=== PATIENT | female | born 1950 | race Caucasian/White ===

== ENCOUNTER 2017-08-08 12:50 | Emergency (ER) | payer MEDICARE ==
[~2017-08-08] VITALS: Ht 177.8 cm; Wt 130.0 kg
[2017-08-08 12:52] VITALS: BP 152/88; PULSE 88; RESP 17; TEMP 97.8; O2SAT 96
--- NOTE | 2017-08-08 12:55 | PD ---
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 NO LOC ,N/V/ NUMBNESS OR TINGLING. PAIN 8/10 VS NOTED WAITING FOR BED PLACEMENT MDM Medical Record Reviewed: No Supervised Visit with SANGEETA: Yes Demetrius Contreras Aug 08, 2017 12:54
--- NOTE | 2017-08-08 13:37 | PD ---
HPI Chief Complaint: Fall Time Seen by Provider: 13:26 Travel History International Travel<30 days: No Contact w/Intl Traveler<30days: No Traveled to known affect area: No History of Present Illness HPI 67-year-old female presents emergency Department with complaint of left eye pain , right shoulder pain and bilateral knee pain after tripping over a floor mat and falling today. Denies loss of consciousness. Denies neck pain or back pain. Patient has swelling and bruising around her left eye. She denies change in vision. Denies focal deficits or weakness. Denies change in mentation, confusion, disorientation, lightheadedness, dizziness, headache, slurred speech. Denies anticoagulants. Denies paresthesias, loss of sensation , to all extremities. Reports decreased range of motion of the right shoulder. Denies chest pain or shortness breath, abdominal pain, nausea, vomiting. Is ambulatory with normal gait. Says her knees really don't hurt much. Has not taken any medications or tried any treatments to alleviate her symptoms. Right shoulder pain is aggravated with movement. Decreased while at rest. Up-to- date on tetanus vaccination. Has no other medical complaints. Allergies to penicillins and sulfas. No other modifying factors or associated signs and symptoms. PFSH Social History Tobacco Use: No Allergies-Medications (Allergen,Severity, Reaction): Coded Allergies: Penicillins (Verified Allergy, Severe, Rash, 08/08/17) Sulfa (Sulfonamide Antibiotics) (Verified Allergy, Severe, Rash, 08/08/17) Review of Systems Except as stated in HPI: all other systems reviewed are Neg Physical Exam Narrative GENERAL: Well-nourished, well-developed female patient, in no acute distress SKIN: Warm and dry. Left lateral eyebrow with abrasion. HEAD: Atraumatic. Normocephalic. eft lateral eyebrow with abrasion. No other facial or scalp abrasions or lacerations noted. EYES: Pupils equal and round at 3 mm with brisk reaction. No scleral icterus. No injection or drainage. Left raccoon eye. Ecchymosis and swelling noted around left eye. With left orbital tenderness on palpation. ENT: Mucosa pink and moist. No erythema or exudates. No uvular edema. No uvular , palatal, or tonsillar deviation. Airway patent. Nares without nasal blood. No rhinorrhea. EARS: Bilateral pinnae and external canals appear within normal limits. Bilateral tympanic membranes without erythema, dullness, hemotympanum or perforation. No otorrhea. No joy signs. NECK: Moving freely. Trachea midline. No lymphadenopathy. Active rotation of the neck greater than 45 left and right. No midline point tenderness on palpation of the cervical spine. No obvious deformities. CHEST: No retractions or use of accessory muscles. CARDIOVASCULAR: Regular rate and rhythm. No murmur appreciated. RESPIRATORY: No accessory muscle use. Clear to auscultation. Breath sounds equal bilaterally. GASTROINTESTINAL: Abdomen soft, non-tender, nondistended. Hepatic and splenic margins not palpable. Bowel sounds are active 4 quadrants. MUSCULOSKELETAL: Right shoulder without erythema, edema, ecchymosis; no obvious deformity; with approximately 90 abduction; shoulders equal; joint stable. Right upper extremities supple and non-tense with 2+ radial pulses and sensory intact without erythema or edema. 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 Bilateral knees without erythema, edema, ecchymosis; with full range of motion and greater than 90 flexion; patient ambulatory with normal gait; no tenderness on palpation. No obvious deformities. No clubbing. No cyanosis. No edema. BACK: No midline Point tenderness on palpation of the lumbar or thoracic spine. No obvious deformities. Patient sitting up in bed at 90. Ambulatory with normal gait. NEUROLOGICAL: Awake and alert. Oriented 3. No obvious cranial nerve deficits. Motor grossly within normal limits. Normal speech. Unable to assess midline drift secondary to right shoulder injury. Moves all extremities. 5/5 strength to all extremities. Sensory intact. PSYCHIATRIC: Appropriate mood and affect; insight and judgment normal. Data Data Last Documented VS Vital Signs Date Time Temp Pulse Resp B/P (MAP) Pulse Ox O2 Delivery O2 Flow Rate FiO2 08/08/17 12:52 97.8 88 17 152/88 (109) 96 Room Air Orders Orders Ct Brain W/O Iv Contrast(Rout) (08/08/17 ) Ct Facial Bones W/O Iv Cont (08/08/17 ) Shoulder, Complete (>2vws) (08/08/17 13:20) [facility] Medical Decision Making Medical Screen Exam Complete: Yes Emergency Medical Condition: Yes Medical Record Reviewed: Yes Differential Diagnosis Fall, facial contusion, orbital fracture, shoulder contusion, shoulder fracture , knee contusion Narrative Course 67-year-old female with right shoulder injury and facial contusion after mechanical fall today. Denies loss of consciousness. Denies neck pain or back pain. Denies anticoagulants. [place] C-Spine Rule suggests the C-Spine can be cleared clinically of fracture, and imaging is not required. There is no midline point tenderness on palpation of the cervical spine. The patient is able to actively rotate the neck 45 left and right. The patient is sitting up in bed at 90. The patient is ambulatory. Patient up-to-date on tetanus vaccination. I do not suspect fracture dislocation of either knees and feel that imaging is not necessary at this time. Right shoulder x-ray ordered. CT head and facial bones ordered. 1345: Right shoulder x-ray concludes: No definite fracture is seen for technique. 1454: CT head and facial bones concludes: Last 24 hours Impressions Shoulder X-Ray 08/08/17 1320 Signed Impressions: Service Date/Time: , August 08, 2017 13:33 - CONCLUSION: No definite fracture is seen for technique. Brando Griffin MD Maxillofacial CT 08/08/17 0000 Signed Impressions: Service Date/Time: , August 08, 2017 14:18 - CONCLUSION: No definite fracture is seen for technique. Brando Griffin MD Head CT 08/08/17 0000 Signed Impressions: Service Date/Time: August 14:18 - CONCLUSION: Unremarkable study. Brando Griffin MD I offered the patient pain medication while she was here and she declined. I offered the patient pain medication for home and she declined. Instructed patient to follow up with primary care provider. Patient verbalizes understanding and agreement with treatment plan. Patient is medically cleared and stable for discharge. Discussed reasons to return to the emergency department. Patient agrees with treatment plan. The patients vital signs are stable and the patient is stable for outpatient follow-up and treatment. Patient discharged home, stable and in no acute distress. Diagnosis Primary Impression: Fall Qualified Codes: W19.XXXA - Unspecified fall, initial encounter Additional Impressions: Facial contusion Qualified Codes: S00.83XA - Contusion of other part of head, initial encounter Right shoulder injury Qualified Codes: S49.91XA - Unspecified injury of right shoulder and upper arm , initial encounter Referrals: Primary Care Physician Patient Instructions: Facial Contusion (ED), Fall Prevention (ED), General Instructions, Shoulder Sprain (ED) Additional Instructions: Tylenol or ibuprofen as directed and as needed for pain and inflammation Rest, ice, compress, and elevate extremity to decrease pain and inflammation Ice to affected eye as needed for pain and inflammation Avoid aggravating activity; increase activity as tolerated Follow-up with primary care provider Return to the emergency department immediately with worsening of symptoms Med/Other Pt SpecificInfo: No Meds Exist/No RX given Disposition: 01 DISCHARGE HOME Condition: Stable Jaleesa Fiore Aug 08, 2017 13:37
--- NOTE | 2017-08-08 13:41 | RADRPT ---
EXAM DATE/TIME: 08/08/2017 13:33 [facility] COMPARISON: No previous studies available for comparison. INDICATIONS : Right shoulder pain, fell MEDICAL HISTORY : None. SURGICAL HISTORY : None. ENCOUNTER: Initial ACUITY: 1 day PAIN SCORE: 4/10 LOCATION: Right Shoulder FINDINGS: No definite fractures, or dislocations are identified. No definite lytic or sclerotic lesion is seen . The glenohumeral joint space is well maintained. There are hypertrophic changes involving the acro mion and AC joint. CONCLUSION: No definite fracture is seen for technique. KSilvia Griffin MD on August 08, 2017 at 13:39 Board Certified Radiologist. This report was verified electronically.
--- NOTE | 2017-08-08 14:42 | RADRPT ---
EXAM DATE/TIME: 08/08/2017 14:18 [facility] COMPARISON: No previous studies available for comparison. INDICATIONS : Patient fell RADIATION DOSE: 32.47 CTDIvol (mGy) MEDICAL HISTORY : None SURGICAL HISTORY : None. ENCOUNTER: Initial ACUITY: 1 day PAIN SCALE: 8/10 LOCATION: Left facial TECHNIQUE: Multiple contiguous axial images were obtained of the head. Using automated exposure control and adjustment of the mA and/or kV according to patient size, radiation dose was kept as low as reasonably achievable to obtain optimal diagnostic quality images. DICOM format image data is av ailable electronically for review and comparison. FINDINGS: There is no evidence for intracranial hemorrhage, mass effect, mass lesions, edema, or extra-axial fl uid collections. The visualized bony structures appear intact. The ventricles are normal size for t he patient's age. There are no signs of acute infarction for technique. CONCLUSION: Unremarkable study. Brando Griffin MD on August 08, 2017 at 14:38 Board Certified Radiologist. This report was verified electronically.
--- NOTE | 2017-08-08 14:45 | RADRPT ---
EXAM DATE/TIME: 08/08/2017 14:18 [facility] COMPARISON: No previous studies available for comparison. INDICATIONS : Patient fell and landed on face RADIATION DOSE: 41.35 CTDIvol (mGy) MEDICAL HISTORY : None SURGICAL HISTORY : None. ENCOUNTER: Initial ACUITY: 1 day PAIN SCORE: 8/10 LOCATION: Left facial TECHNIQUE: Volumetric scanning of the facial bones was performed. Using automated exposure control and adjustme nt of the mA and/or kV according to patient size, radiation dose was kept as low as reasonably achiev able to obtain optimal diagnostic quality images. DICOM format image data is available electronicall y for review and comparison. FINDINGS: No definite fractures, or dislocations are identified. No definite lytic or sclerotic lesion is seen . There is mild subcutaneous bruising involving the left cheek. The optic globe appear symmetric bila terally. CONCLUSION: No definite fracture is seen for technique. Brando Griffin MD on August 08, 2017 at 14:41 Board Certified Radiologist. This report was verified electronically.
== END 2017-08-08 15:07 | disposition home or self-care (01) ==
LOC: NEPK 12:50
DX: S00.83XA Contusion of other part of head, initial encounter (principal); S49.91XA Unspecified injury of right shoulder and upper arm, initial encounter; M25.562 Pain in left knee; M25.561 Pain in right knee; W18.09XA Striking against other object with subsequent fall, initial encounter
CPT/HCPCS: 70450; 70486; 73030; 99285